=== PATIENT | male | born 1950 | race Caucasian/White ===

== ENCOUNTER 2018-11-24 08:44 | Outpatient (CLI) | payer MEDICARE, BC ==
--- NOTE | 2018-11-24 09:57 | RAD ---
CHEST TWO VIEWS: HISTORY: Cough. COMPARISON: 07/13/2017 FINDINGS: The cardiac silhouette and pulmonary vasculature are unremarkable. The mediastinum is midline with p ostoperative changes. No confluent air space consolidation, pneumothorax, or pleural fluid. IMPRESSION: No active cardiopulmonary abnormalities demonstrated. POS: [facility]
== END 2018-11-24 08:45 | disposition home or self-care (01) ==
LOC: RAD-FRANK 08:44
PROVIDERS: ATTEND Nurse Practitioner Family
DX: R05 Cough (principal)
CPT/HCPCS: 71046

== ENCOUNTER 2018-12-13 08:56 | Outpatient (CLI) | payer MEDICARE, BC ==
--- NOTE | 2018-12-13 09:46 | RAD ---
TWO VIEWS OF THE RIGHT CALCANEUS: Date: 12-13-18 Comparison: None. History: Pain. FINDINGS: There is subtle enthesophyte formation at the insertion of the Achilles tendon and origin of the plan tar aponeurosis. There is mild subtalar joint degenerative change. No acute fracture seen. IMPRESSION: No acute fracture. POS: [facility]
--- NOTE | 2018-12-13 09:54 | RAD ---
TWO VIEWS CHEST: Date: 12-13-18 Provided Clinical History: Cough. FINDINGS: Comparison 11-24-18. Cardiac silhouette is unchanged in appearance. Median sternotomy changes are again seen. The posterio r costophrenic angles are excluded on the lateral view. Given this limitation, there is no evidence f or focal consolidation, pleural fluid, or pneumothorax. Degenerative changes are seen involving the s pine. IMPRESSION: No evidence for an acute cardiopulmonary process with limitations as above. POS: [facility]
== END 2018-12-13 08:57 | disposition home or self-care (01) ==
LOC: RAD-FRANK 08:56
PROVIDERS: ATTEND Nurse Practitioner Family
DX: M79.671 Pain in right foot (principal); R05 Cough; M47.9 Spondylosis, unspecified; Z98.890 Other specified postprocedural states
CPT/HCPCS: 71046

== ENCOUNTER 2022-04-20 08:03 | Outpatient (CLI) | payer MEDICARE, BC | END 2022-04-20 08:04 | disposition home or self-care (01) | LOC: RAD-FRANK 08:03 | PROVIDERS: ATTEND Nurse Practitioner Family | DX: R10.9 Unspecified abdominal pain (principal) | CPT/HCPCS: 74018 ==

== ENCOUNTER 2024-04-16 13:39 | Outpatient (CLI) | payer MEDICARE | END 2024-04-16 13:40 | disposition home or self-care (01) | LOC: BICMRI 13:39 | PROVIDERS: ATTEND Specialist | DX: M51.16 Intervertebral disc disorders with radiculopathy, lumbar region (principal); M51.37 Other intervertebral disc degeneration, lumbosacral region; M48.061 Spinal stenosis, lumbar region without neurogenic claudication | CPT/HCPCS: 72148 ==